=== PATIENT | female | born 1960 | race Caucasian/White ===

== ENCOUNTER 2024-12-06 | Emergency (ER) | payer BC ==
[~2024-12-06] VITALS: Ht 167.6 cm; Wt 55.0 kg
[~2024-12-06] MED LIST: CIPROFLOXACN500 MG PO; NO; ROBITUSSIN AC10 ML PO
[2024-12-06 00:18] VITALS: BP 148/91
[2024-12-06 00:33] VITALS: BP 148/91
== END 2024-12-06 00:33 | disposition home or self-care (01) | DRG 153 ==
LOC: ED
DX: J02.9 Acute pharyngitis, unspecified (principal)